=== PATIENT | female | born 1930 | race Caucasian/White ===

== ENCOUNTER 2020-11-12 16:18 | Inpatient (IN) ==
[2020-11-12 17:50] LABS: Basophils % 0.3 % (0.0-0.8); Eosinophils # 0.2 10*3/uL (0.0-0.87); Hematocrit 26.2 VOL% (35.7-47.0); Hemoglobin 7.6 GM/DL (12.0-16.0); Immature Granulocytes % 0.4 %; Immature Granulocytes Absolute 0.03 #; Lymphocytes # 0.7 10*3/uL (1.4-4.0); Lymphocytes % 9.9 % (21.3-54.2); Mean Corpuscular Volume 79.4 FL (87-102); Mean Platelet Volume 10.1 FL (9.6-12.0); Monocytes % 4.7 % (1.7-12.7); Neutrophils % 82.7 % (38.7-73.9); Platelet Count 208 T/CUMM (130-400); Red Cell Distribution Width 25.5 % (9.3-17.3); White Blood Count 7.5 T/CUMM (4-12)
[2020-11-12 18:05] LABS: Calcium 8.2 MG/DL (8.5-10.1); Osmolality,Calculated 280.5 MOS/KG (273-304); Potassium 3.8 MMOL/L (3.5-5.1)
[2020-11-12 18:13] LABS: Anisocytosis 2+; Platelet Estimate Normal
[2020-11-12 18:14] LABS: Hypochromasia 1+; Macrocytosis 1+; Poikilocytosis Slight; Polychromasia Slight; Target Cells Few
[2020-11-12 18:51] LABS: INR 1.2; PT Patient Result 12.7 SECS (10.5-12.0); Partial Thromboplastin Time 27.1 SECS (23.9-33.8)
[2020-11-12] MEDS ORDERED: GLUCAGON 1 MG VIAL IM PRN (20:22)
[2020-11-12] MEDS ORDERED: ONDANSETRON 4 MG/2 ML VIAL IV PRN (20:22)
[2020-11-12] MEDS ORDERED: DEXTROSE 50% 25 GM/50 ML VIAL IV PRN (20:22)
[2020-11-12] MEDS ORDERED: SODIUM CHLORIDE 0.9% 1,000 ML IV PRN ×2 (20:25→23:37)
[2020-11-12 21:15] LABS: Folate 12.38 NG/ML (5.38-24.0)
[2020-11-12] MEDS: ENOXAPARIN 40 MG/0.4 ML SYRINGE SUBCUT SCH (21:32)
[2020-11-13] MEDS: FERROUS SULFATE 300 MG/5 ML UDCUP PO SCH ×3 (01:38→20:38)
[2020-11-13] MEDS: SODIUM CHLORIDE 0.9% 1,000 ML IV SCH ×2 (01:39→13:58)
[2020-11-13 05:17] LABS: Basophils % 0.6 % (0.0-0.8); Calcium 8.4 MG/DL (8.5-10.1); Eosinophils # 0.1 10*3/uL (0.0-0.87); Eosinophils % 0.8 % (0.00-10.9); Hematocrit 31.1 VOL% (35.7-47.0); Immature Granulocytes % 0.5 %; Immature Granulocytes Absolute 0.03 #; Lymphocytes # 0.8 10*3/uL (1.4-4.0); Lymphocytes % 12.9 % (21.3-54.2); Mean Corpuscular HGB Conc 29.9 GM/DL (32-36); Mean Corpuscular Volume 82.1 FL (87-102); Mean Platelet Volume 10.6 FL (9.6-12.0); Monocytes % 4.6 % (1.7-12.7); NRBC # 0.02 10*3/uL; Neutrophils % 80.6 % (38.7-73.9); Osmolality,Calculated 281.4 MOS/KG (273-304); Platelet Count 224 T/CUMM (130-400); Red Blood Count 3.79 MC/CUMM (3.8-5.5); White Blood Count 6.3 T/CUMM (4-12)
[2020-11-13 05:18] LABS: Hemoglobin 9.3 GM/DL (12.0-16.0)
[2020-11-13 05:34] LABS: Eosinophils 1 % (0-10); Lymphocytes 11 % (20-55); Segmented Neutrophils 87 % (50-85); Total Cells Counted 100
[2020-11-13 05:35] LABS: Hypochromasia 1+; Microcytosis 1+; Platelet Estimate Adequate
[2020-11-13] MEDS ORDERED: propofoL 200 MG/20 ML VIAL IV ONE (07:31)
[2020-11-13] MEDS ORDERED: ROCURONIUM 50 MG/5 ML VIAL IV ONE (07:31)
[2020-11-13] MEDS ORDERED: fentaNYL 100 MCG/2 ML VIAL ONE (07:31)
[2020-11-13] MEDS ORDERED: LIDOCAINE 2% 5 ML VIAL ONE (07:31)
[2020-11-13] MEDS ORDERED: SEVOFLURANE 1 UNIT/15 MINUTE INH ONE (07:31)
[2020-11-13] MEDS ORDERED: KETAMINE 500 MG/10 ML VIAL ONE (07:32)
[2020-11-13] MEDS ORDERED: PHENYLEPHRINE 1 MG/10 ML SYRINGE IV ONE (08:30)
[2020-11-13] MEDS ORDERED: HYDROCORTISONE 100 MG VIAL ONE (08:30)
[2020-11-13] MEDS ORDERED: ONDANSETRON 4 MG/2 ML VIAL ONE (08:30)
[2020-11-13] MEDS ORDERED: GLYCOPYRROLATE 0.4 MG/2 ML VIAL ONE (08:47)
[2020-11-13] MEDS ORDERED: NEOSTIGMINE 10 MG/10 ML VIAL ONE (08:47)
[2020-11-13] MEDS ORDERED: diphenhydrAMINE CAP 25 MG CAPSULE PO PRN (09:03)
[2020-11-13] MEDS ORDERED: LACTULOSE 20 GM/30 ML UDCUP PO PRN (09:03)
[2020-11-13] MEDS ORDERED: MAGNESIUM HYDROXIDE SUSP 30 ML UDCUP PO PRN (09:03)
[2020-11-13] MEDS ORDERED: BISACODYL 10 MG SUPP RECTAL PRN (09:03)
[2020-11-13] MEDS ORDERED: ACETAMINOPHEN 500 MG TABLET PO PRN (09:06)
[2020-11-13] MEDS ORDERED: MORPHINE 2 MG/1 ML SYRINGE IV PRN (09:06)
[2020-11-13] MEDS ORDERED: BUPIVACAINE MPF 0.25% 30 ML VIAL ONE (09:23)
[2020-11-13] MEDS ORDERED: DEXAMETHASONE 4 MG/1 ML VIAL ONE (09:23)
[2020-11-13] MEDS ORDERED: INFLUENZA VIRUS VACCINE 0.5 ML SYRINGE IM ONE (09:39)
[2020-11-13] MEDS: PANTOPRAZOLE 40 MG TABLET PO SCH (10:13)
[2020-11-13] MEDS ORDERED: DILTIAZEM 30 MG TABLET PO ONE (13:15)
[2020-11-13] MEDS: DILTIAZEM 30 MG TABLET PO SCH ×2 (16:50→20:44)
[2020-11-13] MEDS: MORPHINE 2 MG/1 ML SYRINGE IV PRN (17:53)
[2020-11-13] MEDS: GABAPENTIN 100 MG CAPSULE PO SCH (20:37)
[2020-11-13] MEDS: OLANZapine 2.5 MG TABLET PO SCH (20:37)
[2020-11-13] MEDS: busPIRone 15 MG TABLET PO SCH (20:37)
[2020-11-13] MEDS: ENOXAPARIN 40 MG/0.4 ML SYRINGE SUBCUT SCH (20:38)
[2020-11-13] MEDS: MEMANTINE 5 MG TABLET PO SCH (20:38)
[2020-11-13] MEDS: DONEPEZIL 5 MG TABLET PO SCH (20:38)
[2020-11-14 05:09] LABS: Basophils % 0.3 % (0.0-0.8); Eosinophils % 0.2 % (0.00-10.9); Hematocrit 32.4 VOL% (35.7-47.0); Hemoglobin 9.8 GM/DL (12.0-16.0); Immature Granulocytes % 0.5 %; Immature Granulocytes Absolute 0.03 #; Lymphocytes # 0.9 10*3/uL (1.4-4.0); Mean Corpuscular HGB Conc 30.2 GM/DL (32-36); Mean Corpuscular Volume 82.9 FL (87-102); Mean Platelet Volume 10.3 FL (9.6-12.0); Monocytes % 7.1 % (1.7-12.7); NRBC # 0.08 10*3/uL; Neutrophils % 77.9 % (38.7-73.9); Platelet Count 210 T/CUMM (130-400); Red Blood Count 3.91 MC/CUMM (3.8-5.5); Red Cell Distribution Width 23.2 % (9.3-17.3); White Blood Count 6.4 T/CUMM (4-12)
[2020-11-14 05:34] LABS: Hypochromasia 1+; Microcytosis 2+
[2020-11-14 05:35] LABS: Platelet Estimate Normal; Target Cells Slight
[2020-11-14 05:42] LABS: Calcium 7.8 MG/DL (8.5-10.1)
[2020-11-14] MEDS: MORPHINE 2 MG/1 ML SYRINGE IV PRN ×2 (08:24→14:14)
[2020-11-14] MEDS ORDERED: MAGNESIUM HYDROXIDE SUSP 30 ML UDCUP PO SCH (09:00)
[2020-11-14] MEDS ORDERED: [UNRECOGNIZED DRUG - OTHER] PO SCH (09:00)
[2020-11-14] MEDS ORDERED: ALUMINUM/MAGNES/SIMETH MAX STR 30 ML UDCUP PO PRN (09:00)
[2020-11-14] MEDS: busPIRone 15 MG TABLET PO SCH ×2 (10:20→20:19)
[2020-11-14] MEDS: BENZTROPINE 0.5 MG TABLET PO SCH (10:20)
[2020-11-14] MEDS: ASPIRIN EC 81 MG TABLET PO SCH (10:20)
[2020-11-14] MEDS: DILTIAZEM 30 MG TABLET PO SCH ×4 (10:20→20:22)
[2020-11-14] MEDS: FERROUS SULFATE 300 MG/5 ML UDCUP PO SCH ×2 (10:21→20:23)
[2020-11-14] MEDS: GABAPENTIN 100 MG CAPSULE PO SCH ×2 (10:21→20:19)
[2020-11-14] MEDS: PANTOPRAZOLE 40 MG TABLET PO SCH (10:21)
[2020-11-14] MEDS: SERTRALINE 100 MG TABLET PO SCH (10:21)
[2020-11-14 16:50] LABS: Bilirubin,Urine Negative (Negative); Blood, Urine Small mg/dL (Negative); Glucose,Urine (UA) Negative (Negative); Hyaline Casts,Urine 4 /LPF (0-3); Ketones,Urine Negative (Negative); Mucus,Urine Occasional /LPF (Occasional); Nitrite,Urine Negative (Negative); Protein,Urine Negative; RBC,Urine 9 /HPF (0-4); Squamous Epithelial Cell,Urine Occasional /HPF (0-10); Urine Appearance Slightly Hazy (Clear); Urine Color Yellow (Yellow); Urine Specific Gravity 1.019 (1.001-1.035)
[2020-11-14] MEDS: MEMANTINE 5 MG TABLET PO SCH (20:19)
[2020-11-14] MEDS: OLANZapine 2.5 MG TABLET PO SCH (20:19)
[2020-11-14] MEDS: ENOXAPARIN 40 MG/0.4 ML SYRINGE SUBCUT SCH (20:19)
[2020-11-14] MEDS: DONEPEZIL 5 MG TABLET PO SCH (20:19)
[2020-11-15 06:31] LABS: Basophils % 0.8 % (0.0-0.8); Eosinophils # 0.2 10*3/uL (0.0-0.87); Eosinophils % 3.2 % (0.00-10.9); Hematocrit 31.2 VOL% (35.7-47.0); Hemoglobin 9.1 GM/DL (12.0-16.0); Immature Granulocytes % 0.4 %; Immature Granulocytes Absolute 0.02 #; Lymphocytes # 1.7 10*3/uL (1.4-4.0); Lymphocytes % 33.8 % (21.3-54.2); Mean Corpuscular HGB Conc 29.2 GM/DL (32-36); Mean Corpuscular Volume 85.5 FL (87-102); Mean Platelet Volume 9.9 FL (9.6-12.0); Monocytes % 8.6 % (1.7-12.7); NRBC # 0.05 10*3/uL; Neutrophils % 53.2 % (38.7-73.9); Platelet Count 199 T/CUMM (130-400); Red Blood Count 3.65 MC/CUMM (3.8-5.5); Red Cell Distribution Width 23.4 % (9.3-17.3)
[2020-11-15] MEDS: DILTIAZEM 30 MG TABLET PO SCH ×2 (09:22→12:28)
[2020-11-15] MEDS: busPIRone 15 MG TABLET PO SCH (09:22)
[2020-11-15] MEDS: SERTRALINE 100 MG TABLET PO SCH (09:23)
[2020-11-15] MEDS: PANTOPRAZOLE 40 MG TABLET PO SCH (09:23)
[2020-11-15] MEDS: ASPIRIN EC 81 MG TABLET PO SCH (09:23)
[2020-11-15] MEDS: FERROUS SULFATE 300 MG/5 ML UDCUP PO SCH (09:23)
[2020-11-15] MEDS: GABAPENTIN 100 MG CAPSULE PO SCH (09:23)
[2020-11-15] MEDS: BENZTROPINE 0.5 MG TABLET PO SCH (09:24)
[2020-11-15] MEDS ORDERED: NITROFURANTOIN MACRO/MONO 100 MG CAPSULE PO SCH (10:30)
[2020-11-15] MEDS ORDERED: CYANOCOBALAMIN 1000 MCG/1 ML VIAL SUBCUT SCH (11:00)
[2020-11-15 11:18] VITALS: BP 128/84
[2020-11-15] MEDS ORDERED: CYANOCOBALAMIN 100 MCG TABLET PO SCH (11:30)
== END 2020-11-15 12:45 | DRG 481 ==
LOC: N.ED 16:18 → SUATTDRO 20:22 → N.3E 20:22
PROVIDERS: ADMIT Internal Medicine; ATTEND Hospitalist